=== PATIENT | female | born 1985 | race African-American/Black ===

== ENCOUNTER 2019-04-12 01:14 | Emergency (ER) | payer BC ==
[~2019-04-12] VITALS: Ht 172.7 cm; Wt 133.8 kg
[2019-04-12 01:28] VITALS: BP 110/58
--- NOTE | 2019-04-12 01:29 | NUR ---
ED Nurse Note: WAlk-in patient with complaints of left wrist pain post fall at [employer] yesterday. Addendum: 04/12/19 at 0131 by RIYA ED Nurse Note: Patient fell within the last hour not yesterday.
[2019-04-12] MEDS ORDERED: HYDROcodone/Acetamin 5/325 tab ORAL ONE (01:30)
--- NOTE | 2019-04-12 01:32 | Emergency Room Report ---
History of Present Illness General Chief Complaint: Upper Extremity Injury Source: Patient Present Illness HPI Is a 34-year-old female who is left-hand dominant. She presents with chief from a left wrist injury. This occurred just prior to arrival. She was rollerskating and fell on outstretched hand. Complaining of pain. Pain is 9 out of 10. Worse with movement. Better with rest. No other injury. Did not pass out. Allergies: Coded Allergies: IODINE (Verified Allergy, Unknown, 04/12/19) Patient History Past Medical History: see triage record, old chart reviewed Past Surgical History: none Pertinent Family History: none Social History: Denies: smoking Now: No Immunizations: other Reviewed Nursing Documentation: PMH: Agreed; PSxH: Agreed Nursing Documentation-PMH Past Medical History: No History, Except For Review of Systems Eye: Denies: eye pain, blurred vision ENT: Denies: ear pain, nose congestion, throat swelling Respiratory: Denies: cough, shortness of breath Cardiovascular: Denies: chest pain, palpitations Gastrointestinal: Denies: abdominal pain, diarrhea, nausea, vomiting Musculoskeletal: Reports: joint pain; Denies: back pain Skin: Denies: rash Neurological: Denies: headache, numbness Endocrine: Denies: increased thirst, increased urine Hematologic/Lymphatic: Denies: easy bruising All Other Systems: negative except mentioned in HPI Physical Exam Vital Signs Date Time Temp Pulse Resp B/P (MAP) Pulse Ox O2 Delivery O2 Flow Rate FiO2 04/12/19 01:24 98.1 60 18 110/58 (75) 99 Room Air Vitals normal Sp02 EP Interpretation: reviewed, normal General Appearance: well appearing, no apparent distress, alert Head: normocephalic, atraumatic Eyes: bilateral eye PERRL, bilateral eye EOMI ENT: hearing grossly normal, normal pharynx Neck: full range of motion, supple, no meningismus Respiratory: chest non-tender, lungs clear, normal breath sounds Cardiovascular #1: regular rate, rhythm, no murmur Gastrointestinal: normal bowel sounds, non tender, no mass, no organomegaly, no bruit, non-distended Musculoskeletal: back normal, gait/station normal, other - Left wrist: There is a dinner fork deformity. Pulse normal. Tender to palpation. Psychiatric: mood/affect normal Procedures Splinting Splinting : Consent: Verbal Location: left wrist Hand-Made Type: plaster Splint: sugar-tong Pre-Proc Neuro Vasc Exam: normal Post-Proc Neuro Vasc Exam: normal Patient Tolerated: Well Complications: None Progress I did a hematoma block with 1% lidocaine without epinephrine. I injected 10 cc. I reduce the fracture and place her in a sugar tong splint. Patient tolerated procedure without any problem. Medical Decision Making Diagnostic Impression: Primary Impression: Distal radius fracture, left Qualified Codes: S52.532A - Colles' fracture of left radius, initial encounter for closed fracture ER Course Patient with a distal radius/Colles' fracture. Fracture reduced and splinted. Will refer to orthopedic doctor. No evidence of compartment syndrome or vascular injury. Other X-Ray Diagnostic Results Other X-Ray Diagnostic Results #1: X-Ray ordered: Wrist x-rays, left # of Views/Limited Vs Complete: 3 View Indication: Pain EP Interpretation: Yes Interpretation: no dislocation, no soft tissue swelling, other - Comminuted , displaced distal radius fracture with moderate angulation. Impression: Other - distal radius frx Electronically Signed by: Jr Quintana MD Other X-Ray Diagnostic Results #2: X-Ray ordered: Left wrist x-rays # of Views/Limited Vs Complete: 3 View Indication: Pain EP Interpretation: Yes Interpretation: no dislocation, no soft tissue swelling, other - Better alignment after reduction. Distal radius fracture. Impression: Other - Status post fracture reduction. Better alignment distal radius fracture. Electronically Signed by: Jr Quintana MD Last Vital Signs Date Time Temp Pulse Resp B/P (MAP) Pulse Ox O2 Delivery O2 Flow Rate FiO2 04/12/19 01:28 98.1 78 18 110/58 99 Room Air Status: improved Disposition: HOME, SELF-CARE Condition: Stable Scripts Ibuprofen* (MOTRIN*) 600 Mg Tablet 600 MG ORAL THREE TIMES A DAY, #30 TAB 0 Refills Prov: Jr Quintana MD 04/12/19 Hydrocodone/Acetaminophen 5-325* (HYDROCODONE/ACETAMINOPHEN 5-325*) 1 Each Tablet 1 TAB ORAL Q6H PRN for For Pain, #30 TAB 0 Refills Prov: Jr Quintana MD 04/12/19 Referrals: NOT CHOSEN [facility]/,REFERRING (PCP) Jr Quintana MD Apr 12, 2019 01:31
--- NOTE | 2019-04-12 01:41 | NUR ---
ED Nurse Note: Patient currently undergoing xray.
[2019-04-12] MEDS ORDERED: IBUPROFEN600 MG ORAL (02:39)
[2019-04-12] MEDS ORDERED: HYDROCODON-ACE1 EA15 ORAL (02:39)
--- NOTE | 2019-04-12 02:43 | NUR ---
ED Nurse Note: Patient cleared for discharge by [facility], patient is A&Ox3, has no s/s of acute distress and reports a mjor decrease in pain and increase in ROM of left hand. Patient verbalized understanding of discharge instructions and departed with all belongings.
[2019-04-12 02:45] VITALS: BP 110/58
[2019-04-12] MEDS ORDERED: NORCO 5-325 TA1 EACH ORAL (11:14)
== END 2019-04-12 02:45 | disposition home or self-care (01) ==
LOC: EMR 01:28
DX: S52.532A Colles' fracture of left radius, initial encounter for closed fracture (principal); Z91.041 Radiographic dye allergy status; W18.39XA Other fall on same level, initial encounter; Y93.51 Activity, roller skating (inline) and skateboarding; Y92.9 Unspecified place or not applicable
CPT/HCPCS: 99283